=== PATIENT | female | born 1990 | race Caucasian/White ===

== ENCOUNTER 2024-06-25 12:24 | Inpatient (IN) | payer OTHER ==
[~2024-06-25] VITALS: Ht 162.6 cm; Wt 3.6 kg
[2024-06-25 13:15] LABS: HEMATOCRIT 30.1 % (36.0-45.00); HEMOGLOBIN 10.3 g/dL (12.0-15.00); MEAN CELL VOLUME 82.5 fL (80.00-100.00); MEAN CORPUSCULAR HEMOGLOBIN 28.2 pg (27.00-32.0); MEAN CORPUSCULAR HGB CONC 34.2 g/dl (32.0-36.0); PLATELET COUNT 172 K/uL (150-450); RED BLOOD COUNT 3.66 M/uL (4.00-6.00); RED CELL DISTRIBUTION WIDTH 14.2 % (11.5-14.5)
[2024-06-25 13:42] LABS: INR < 0.93; PARTIAL THROMBOPLASTIN TIME 25.3 SECONDS (22.0-34.0); PROTHROMBIN TIME 9.8 SECONDS (9.0-11.5)
[2024-06-25 13:46] LABS: ALBUMIN 2.5 gm/dL (3.4-5.0); BILIRUBIN TOTAL 0.27 mg/dL (0.3-1.2); CALCIUM 8.3 mg/dL (8.5-10.1); CREATININE SERUM 0.69 mg/dL (0.55-1.02); GFR 96.82; POTASSIUM 3.62 mEq/L (3.5-5.1); TOTAL PROTEIN 5.5 gm/dL (6.4-8.2)
[2024-07-01] MEDS ORDERED: PRENA1 TRUE CO1 EACH PO (08:48)
[2024-07-01] MEDS ORDERED: OXYTOCIN 10 UNITS/ML VIAL ONE (11:25)
[2024-07-01] MEDS ORDERED: ERYTHROMYCIN BASE 1 GM TUBE OP ONE (11:25)
[2024-07-01] MEDS ORDERED: CEFAZOLIN SODIUM 1,000 MG VIAL ONE (11:28)
[2024-07-01] MEDS ORDERED: OXYTOCIN 1,000 ML IV SCH (14:00)
[2024-07-01] MEDS ORDERED: MEPERIDINE HCL/PF 50 MG/ML VIAL IM PRN (14:00)
[2024-07-01] MEDS ORDERED: IBUprofen 400 MG TABLET PO PRN (14:00)
[2024-07-02] MEDS ORDERED: ACETAMINOPHEN 500 MG GEL..CAP PO SCH (08:37)
[2024-07-02] MEDS ORDERED: FF) RHO(D) IMMUNE GLOBULIN (POM) IM NR (08:45)
[2024-07-02] MEDS ORDERED: RINGERS SOLUTION,LACTATED 1,000 ML IV SCH (08:45)
[2024-07-02 11:08] LABS: HEMATOCRIT 31.9 % (36.0-45.00); HEMOGLOBIN 10.8 g/dL (12.0-15.00); MEAN CELL VOLUME 82.8 fL (80.00-100.00); MEAN CORPUSCULAR HGB CONC 33.9 g/dl (32.0-36.0); PLATELET COUNT 158 K/uL (150-450); RED BLOOD COUNT 3.85 M/uL (4.00-6.00); RED CELL DISTRIBUTION WIDTH 14.6 % (11.5-14.5)
[2024-07-02] MEDS ORDERED: DOCUSATE SODIUM 100MG CAP PO SCH (12:00)
[2024-07-02] MEDS ORDERED: SIMETHICONE 125 MG CAPSULE PO SCH (13:00)
[2024-07-02] MEDS ORDERED: GABAPENTIN 300 MG CAPSULE PO SCH (13:00)
[2024-07-03] MEDS ORDERED: OxyCODONE HCL 5 MG TABLET (ROXICODONE) PO PRN (08:00)
[2024-07-03] MEDS ORDERED: KETOROLAC TROMETHAMINE 10 MG TABLET PO SCH (08:00)
[2024-07-03] MEDS ORDERED: DOCUSATE CALCIUM 240 MG CAPSULE PO SCH (17:00)
== END 2024-07-04 15:51 | disposition home or self-care (01) | DRG 788 ==
LOC: OB/GYN 07-01 08:30 → O/R 07-01 09:07 → OB/GYN 07-01 12:23
PROVIDERS: Obstetrics & Gynecology; ADMIT Obstetrics & Gynecology; ATTEND Obstetrics & Gynecology
PROC: 4A1HXCZ Monitoring of Products of Conception, Cardiac Rate, External Approach (ICD-10-PCS; 2024-07-01)
PROC: 10D00Z1 Extraction of Products of Conception, Low, Open Approach (ICD-10-PCS; principal; 2024-07-01 08:30)
DX: O34.211 Maternal care for low transverse scar from previous cesarean delivery (principal); Z3A.38 38 weeks gestation of pregnancy; Z37.0 Single live birth; Z20.822 Contact with and (suspected) exposure to COVID-19